=== PATIENT | male | born 1940 | race Caucasian/White ===

== ENCOUNTER → 2018-05-08 | Day surgery (SDC) | payer MEDICARE ==
[~2018-05-08] MED LIST: ACET325T9 PO; APIX2.5T PO; CEPH-264 PO; DEXAMETHASONE SOD PHOS 10 MG/ML VIAL ONE; HYDR-2155 PO; MIDAZOLAM HCL PF 2 MG/2 ML VIAL. ONE; PROPOFOL 20 ML IV ONE; TRAM50TA PO
[2018-05-08 12:45] VITALS: BP 148/88
== END | disposition home or self-care (01) ==
LOC: SURG 08:17
PROVIDERS: ATTEND Anesthesiology Pain Medicine
DX: Z00.6 Encounter for examination for normal comparison and control in clinical research program (principal); M48.062 Spinal stenosis, lumbar region with neurogenic claudication; I26.99 Other pulmonary embolism without acute cor pulmonale; G47.30 Sleep apnea, unspecified; Z79.899 Other long term (current) drug therapy; Z90.49 Acquired absence of other specified parts of digestive tract; Z98.890 Other specified postprocedural states
CPT/HCPCS: 0275T; J0690; J1100; J2250; J2704; J3010